=== PATIENT | female | born 1975 | race Caucasian/White ===

== ENCOUNTER → 2018-09-06 | Outpatient (CLI) | payer BC ==
[2005-11-27 08:08] VITALS: PULSE 88; TEMP 98.2
[~2018-09-06] MED LIST: PRENATAL VITAMI1 TA5 PO
== END ==
LOC: MC.RAD 07:07
DX: Z12.31 Encounter for screening mammogram for malignant neoplasm of breast (principal)

== ENCOUNTER → 2019-10-19 | Outpatient (CLI) | payer BC ==
[2005-11-27 08:08] VITALS: PULSE 88; TEMP 98.2
== END ==
LOC: MC.RAD 07:55
DX: Z12.31 Encounter for screening mammogram for malignant neoplasm of breast (principal); N63.20 Unspecified lump in the left breast, unspecified quadrant

== ENCOUNTER → 2019-10-27 | Outpatient (CLI) | payer BC ==
[2005-11-27 08:08] VITALS: PULSE 88; TEMP 98.2
== END ==
LOC: MC.RAD 13:00
DX: Z12.31 Encounter for screening mammogram for malignant neoplasm of breast (principal); N64.89 Other specified disorders of breast

== ENCOUNTER → 2020-04-25 | Outpatient (CLI) | payer BC ==
[2005-11-27 08:08] VITALS: PULSE 88; TEMP 98.2
== END ==
LOC: MC.RAD 07:43
DX: N60.12 Diffuse cystic mastopathy of left breast (principal)

== ENCOUNTER → 2020-11-25 | Outpatient (CLI) | payer BC ==
[2005-11-27 08:08] VITALS: PULSE 88; TEMP 98.2
== END ==
LOC: MC.RAD 07:00
DX: N64.9 Disorder of breast, unspecified (principal); N60.12 Diffuse cystic mastopathy of left breast

== ENCOUNTER → 2022-03-03 | Outpatient (CLI) | payer BC ==
[2005-11-27 08:08] VITALS: PULSE 88; TEMP 98.2
== END ==
LOC: MC.RAD 07:44
DX: Z12.31 Encounter for screening mammogram for malignant neoplasm of breast (principal)

== ENCOUNTER → 2024-05-03 | Outpatient (CLI) | payer BC ==
[2005-11-27 08:08] VITALS: BP 103/65; PULSE 88; TEMP 98.2
== END ==
LOC: MC.RAD 07:58
DX: Z12.31 Encounter for screening mammogram for malignant neoplasm of breast (principal)